=== PATIENT | female | born 1980 | race Caucasian/White ===

== ENCOUNTER 2023-11-02 12:02 | Emergency (ER) | payer MEDICARE, SELFPAY ==
--- NOTE | ~2023-11-02 | US_ITS ---
EXAMINATION: US venous doppler UE LT DATE: 11/02/2023 15:31 INDICATION: left arm pain . TECHNIQUE: Grayscale ultrasound images without and with compression and Doppler ultrasound images of the left upper extremity veins were obtained. COMPARISON: None. FINDINGS: The visualized portions of the left internal jugular vein, subclavian vein, axillary vein, brachial v eins, basilic vein, cephalic vein, radial vein, and ulnar vein are patent. IMPRESSION: No deep venous thrombosis in the left upper extremity. Reviewed, dictated and finalized at location K. INST[employer] REPAIRER
--- NOTE | ~2023-11-02 | XR_ITS ---
EXAM: XR shoulder LT min 2V DATE: 11/02/2023 15:30 HISTORY: left arm pain, NKI . COMPARISON: None available. FINDINGS: Normal mineralization. No acute fracture or dislocation. Triangular shaped osseous fragmen t at the inferior AC joint, with sclerotic margins, likely an old avulsive fracture fragment or fract ured osteophyte. No lytic or blastic lesion. Joint spaces are maintained. No erosion or periosteal ch sonny. Soft tissues within normal limits. IMPRESSION: No acute osseous finding in the left shoulder. Reviewed, dictated and finalized at location K. ORT SCREENER
[2023-11-02 12:21] VITALS: BP 107/57; PULSE 77; RESP 20; TEMP 36.3; O2SAT 100
--- NOTE | 2023-11-02 14:43 | ED.UPPEXIN ---
HPI - Extremity Injury (Upper) General Chief Complaint: Extremity Injury, Upper Stated Complaint: left arm Time Seen by Provider: 11/02/23 14:33 History of Present Illness HPI narrative: 42 year old female here with L arm pain since July. History limited due to cognitive delay, friend at bedside helps with history. Patient has been having left arm pain since July, denies trauma, denies inciting event. Believes her entire arm hurts, seems to start in her shoulder and radiate downward. Describes it as tingling and stabbing in her upper arm. History of neurofibromatosis. She has not sought care for this before as she is currently living here and her PCP is 5.5 hours away. Has tried taking tylenol for pain without relief. She notes distant injury as a child to this shoulder but has not really had issues since then. Related Data Allergies Allergy/AdvReac Type Severity Reaction Status Date / Time haloperidol [From Haldol] Allergy Unknown Verified 11/02/23 13:52 Penicillins Allergy Unknown Verified 11/02/23 13:52 Review of Systems Review of Systems: All systems reviewed & are unremarkable except as noted in HPI and below Exam Narrative: GENERAL: Well-appearing, well-nourished, and in no acute distress. HEAD: Normocephalic, atraumatic. EYES: PERRLA and EOMI. ENT: Nares clear. Mucous membranes moist. NECK: Supple. CHEST: Clear to auscultation. No respiratory distress. HEART: Regular rate and rhythm. Normal peripheral pulses. ABDOMEN: Soft, nontender, nondistended. EXTREMITIES: Decreased range of motion in left shoulder due to pain. No swelling, strong radial pulse, normal sensation. No deformities appreciated throughout arm. SKIN: Warm, dry, no rash. NEURO: No focal deficits. Alert and oriented x2. PSYCH: Normal mood and affect. Course Course Emergency Course: Chart review performed. Patient here with left arm pain since July. Triage vitals grossly normal. Patient seen evaluated, nontoxic appearing. She has some decreased range of motion to her shoulder which I suspect is probably due to pain and her limited range of motion since July which could have caused some adhesive capsulitis. X-ray and ultrasound performed which were negative. Patient is advised to continue [id number] exercises, take Tylenol and ibuprofen for pain, have given her referral to orthopedic surgery and primary care doctor. The results of pertinent diagnostic studies and exam findings were discussed. The patient?s provisional diagnosis and plan of care were discussed with the patient and present family. The patient and/or present family expressed understanding of the diagnosis and plan. The nurse was instructed to provide written instructions and appropriate follow-up information. The patient understands their need and responsibility to obtain additional follow-up as instructed. The risks of medications administered and prescribed were discussed with the patient and family present. Vital Signs Vital signs: Vital Signs Temperature 97.4 F L 11/02/23 12:21 Pulse Rate 77 11/02/23 12:21 Respiratory Rate 20 11/02/23 12:21 Blood Pressure 107/57 L 11/02/23 12:21 Pulse Oximetry 100 11/02/23 12:21 Oxygen Delivery Room Air 11/02/23 12:21 Temperature 97.4 F L 11/02/23 12:21 Pulse Rate 70 11/02/23 16:27 Respiratory Rate 20 11/02/23 16:27 Blood Pressure 110/60 11/02/23 16:27 Pulse Oximetry 100 11/02/23 16:27 Oxygen Delivery Room Air 11/02/23 12:21 Discharge Plan Discharge Clinical Impression: Acute shoulder pain Qualifiers: Laterality: left Qualified Code(s): M25.512 - Pain in left shoulder Patient Disposition: Home, Self-Care Condition: Stable Instructions: Antibiotic Form, Adhesive Capsulitis (ED), Shoulder Pain (ED) Additional Instructions: Continue to do exercises for your shoulder to ensure you do not develop frozen shoulder. Use Tylenol and ibuprofen as needed for pain. Follow-up
--- NOTE | 2023-11-02 15:42 | PC.NURSE ---
patient refusing tylenol stating that it does not help with pain. requesting muscle relaxer. provider aware
[2023-11-02] MEDS: CYCLOBENZAPRINE HCL 5 MG TABLET PO (16:25)
[2023-11-02 16:27] VITALS: BP 110/60; PULSE 70; RESP 20; O2SAT 100
== END 2023-11-02 16:28 | disposition home or self-care (01) ==
PROVIDERS: Emergency Provider Student in an Organized Health Care Education/Training Program
DX: M25.512 Pain in left shoulder (principal)
CPT/HCPCS: 73030; 93971; 99284; A9270